=== PATIENT | male | born 1960 | race Caucasian/White ===

== ENCOUNTER 2020-01-06 22:39 | Outpatient (CLI) | payer BC | END 2020-01-06 23:59 | disposition critical access hospital (66) | LOC: EMS 22:39 | PROVIDERS: ATTEND Surgery | DX: R07.89 Other chest pain (principal); M79.602 Pain in left arm; R61 Generalized hyperhidrosis | CPT/HCPCS: A0425; A0427 ==

== ENCOUNTER 2020-01-06 23:19 | Observation (INO) | payer BC ==
--- NOTE | 2020-01-06 23:12 | ED Physician Documentation ---
History of Present Illness - Stated complaint Stated Complaint: CHEST PAIN - History obtained from History obtained from: Patient (The patient is a 59-year-old male with a hx of HTN, HLD who presents via ems w a cc of chest pain with no hx of mi/stroke/dvt/pe. tonight he felt some left chest pressure and an abnormal sensation to his left upper extremity. denies syncope. received nitro and asa from ems. describes sensation as moderate currently. reports felt some relief with nitro.) Review of Systems Constitutional: reports: Reviewed and negative Eyes: reports: Reviewed and negative Ears: reports: Reviewed and negative Nose: reports: Reviewed and negative Throat: reports: Reviewed and negative Cardiac: reports: Chest pain / pressure Respiratory: reports: Reviewed and negative GI: reports: Reviewed and negative : reports: Reviewed and negative Skin: reports: Reviewed and negative Musculoskeletal: reports: Reviewed and negative Neurologic: reports: Reviewed and negative Psychiatric: reports: Reviewed and negative Endocrine: reports: Reviewed and negative Immunocompromised: reports: Reviewed and negative PD PAST MEDICAL HISTORY - Present Medications Home Medications: Ambulatory Orders Medication Instructions Recorded Confirmed Atenolol [Tenormin] PO 01/07/20 Lovastatin [Altoprev] 01/07/20 - Allergies Allergies/Adverse Reactions: Allergies Allergy/AdvReac Type Severity Reaction Status Date / Time No Known Drug Allergies Allergy Verified 01/06/20 23:31 PD ED PE NORMAL - Vitals Vital signs reviewed: Yes - General General: Alert and oriented X 3, No acute distress, Well developed/nourished - HEENT HEENT: Atraumatic, PERRL, Moist mucous membranes, Dentition benign - Neck Neck: Supple, no meningeal sign, No adenopathy, No JVD - Cardiac Cardiac: RRR, No murmur, No gallop, Strong equal pulses - Respiratory Respiratory: No respiratory distress, Clear bilaterally - Abdomen Abdomen: Normal bowel sounds, Soft, Non tender, Non distended, No organomegaly - Back Back: No CVA TTP, No spinal TTP - Derm Derm: Normal color, Warm and dry, No rash - Extremities Extremities: No deformity, No tenderness to palpate, Normal ROM s pain, No edema, No calf tenderness / cord - Neuro Neuro: Alert and oriented X 3, 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9 Lymph # (Auto) 1.1 L [place] # (Auto) 0.7 Eos # (Auto) 0.2 Baso # (Auto) 0.1 Absolute Nucleated RBC 0.00 Nucleated RBC % 0.0 PT 12.2 INR 1.1 APTT 28.0 Sodium 143 Potassium 4.1 Chloride 108 Carbon Dioxide 26 Anion Gap 9.0 BUN 20 Creatinine 1.1 Estimated GFR (MDRD) 69 L Glucose 109 H Calcium 9.7 Total Bilirubin 0.2 AST 23 ALT 25 Alkaline Phosphatase 100 Total Creatine Kinase 101 Troponin I High Sens B-Natriuretic Peptide Total Protein 6.3 L Albumin 4.0 Globulin 2.3 Albumin/Globulin Ratio 1.7 Lipase 38 Ethyl Alcohol < 5.0 01/06/20 01/06/20 23:45 23:45 WBC RBC Hgb Hct MCV MCH MCHC RDW Plt Count MPV Neut # (Auto) Lymph # (Auto) [place] # (Auto) Eos # (Auto) Baso # (Auto) Absolute Nucleated RBC Nucleated RBC % PT INR APTT Sodium Potassium Chloride Carbon Dioxide Anion Gap BUN Creatinine Estimated GFR (MDRD) Glucose Calcium Total Bilirubin AST ALT Alkaline Phosphatase Total Creatine Kinase Troponin I High Sens 3.2 B-Natriuretic Peptide 28 Total Protein Albumin Globulin Albumin/Globulin Ratio Lipase Ethyl Alcohol PD MEDICAL DECISION MAKING - ED course Complexity details: reviewed results, re-evaluated patient (Had a lengthy discussion with this patient in regards to risk verification his heart score is 5 he is not had a stress test in the last 10 years.Patient is agreeable for admission for possible stress test possible echo and serial troponins as well as serial EKGs.), considered differential (PERC O, HEART SCORE 5.), d/w patient, d/w weight loss sales consultant - Consults Consults: Discussed case with (dr. calixto, hospitalist. will admit for serial troponins and echo. patient updated and agrees to plan.) Departure - Departure Disposition: ED Place in Observation Clinical Impression: Chest pain Qualifiers: Chest pain type: unspecified Qualified Code(s): R07.9 - Chest pain, unspecified Condition: Stable Discharge Date/Time: 01/07/20 01:09
[2020-01-06] MEDS ORDERED: SODIUM CHLORIDE 0.9% 1,000 ML IV ONE (23:25)
[2020-01-06] MEDS ORDERED: ONDANSETRON 4 MG/2 ML VIAL IVP STA (23:32)
[2020-01-06] MEDS ORDERED: MORPHINE 2 MG/ML CARPUJECT IVP STA (23:32)
[2020-01-06 23:56] LABS: BASOPHILS # (AUTO) 0.1 10^3/uL (0.0-0.1); BASOPHILS % (AUTO) 0.9 %; EOSINOPHILS # (AUTO) 0.2 10^3/uL (0.0-0.7); EOSINOPHILS % (AUTO) 2.3 %; HGB - HEMOGLOBIN 14.4 g/dL (14.0-18.0); LYMPHOCYTES # (AUTO) 1.1 10^3/uL (1.5-3.5); MEAN CORPUSCULAR HEMOGLOBIN 31.1 pg (27.0-31.0); MEAN CORPUSCULAR HGB CONC 33.9 g/dL (32.0-36.0); MEAN CORPUSCULAR VOLUME 91.8 fL (80.0-94.0); MEAN PLATELET VOLUME 9.2 fL (7.4-11.4); MONOCYTES # (AUTO) 0.7 10^3/uL (0.0-1.0); MONOCYTES % (AUTO) 9.7 %; NEUTROPHILS # (AUTO) 4.9 10^3/uL (1.5-6.6); NEUTROPHILS % (AUTO) 70.1 %; PLT - PLATELET COUNT 138 10^3/uL (130-450); RED BLOOD COUNT 4.63 10^6/uL (4.70-6.10); RED CELL DISTRIBUTION WIDTH 12.7 % (12.0-15.0)
[2020-01-07 00:02] LABS: INR 1.1 (0.8-1.2); PT - PROTHROMBIN TIME 12.2 secs (9.9-12.6)
--- NOTE | 2020-01-07 00:12 | XRAY Report ---
Reason: cp Procedure Date: 01/06/2020 Accession Number: [id number] / [id number] Procedure: XR - Chest 1 View X-Ray CPT Code: 69167 Final Report FULL RESULT: EXAM: CHEST RADIOGRAPHY EXAM DATE: 01/06/2020 11:38 PM. CLINICAL HISTORY: Cp. COMPARISON: None. TECHNIQUE: 1 view. FINDINGS: Lungs/Pleura: Minimal dependent atelectasis at the right base. No focal infiltrate, effusion, or pneumothorax. Mediastinum: Within exam limitations, the cardiomediastinal contour is normal. Other: None. IMPRESSION: Minimal right basilar atelectasis. RADIA
[2020-01-07 00:16] LABS: ALBUMIN/GLOBULIN RATIO 1.7 (1.0-2.2); ALKALINE PHOSPHATASE 100 IU/L (42-121); ALT ALANINE AMINOTRANSFERASE 25 IU/L (10-60); AST ASPARTATE AMINOTRANSFERASE 23 IU/L (10-42); BILIRUBIN,TOTAL 0.2 mg/dL (0.2-1.0); BUN - BLOOD UREA NITROGEN 20 mg/dL (6-20); CALCIUM 9.7 mg/dL (8.5-10.3); CARBON DIOXIDE - CO2 26 mmol/L (21-32); CHLORIDE 108 mmol/L (101-111); CK- CREATINE KINASE 101 IU/L (22-269); CREATININE 1.1 mg/dL (0.6-1.2); GLUCOSE 109 mg/dL (70-100); LIPASE 38 U/L (22-51); SODIUM 143 mmol/L (135-145); TOTAL PROTEIN 6.3 g/dL (6.7-8.2)
[2020-01-07] MEDS ORDERED: MORPHINE 2 MG/ML CARPUJECT IVP PRN (00:49)
[2020-01-07] MEDS ORDERED: ACETAMINOPHEN 325 MG TABLET PO PRN (00:49)
[2020-01-07] MEDS ORDERED: SODIUM CHLORIDE FLUSH 0.9% 10 ML SYRINGE IVP PRN (00:49)
[2020-01-07] MEDS ORDERED: PROCHLORPERAZINE 10 MG/2 ML VIAL IVP PRN (00:49)
[2020-01-07] MEDS ORDERED: ASPIRIN CHEW 81 MG TABLET PO ONE (00:49)
[2020-01-07] MEDS ORDERED: ZOLPIDEM 5 MG TABLET PO PRN (00:49)
[2020-01-07] MEDS ORDERED: HYDROcod/ACETAM 5/325 MG TABLET PO PRN (00:49)
[2020-01-07] MEDS ORDERED: ONDANSETRON 4 MG/2 ML VIAL IVP PRN (00:49)
[2020-01-07] MEDS ORDERED: NITROGLYCERIN SL 0.4 MG TABLET SL PRN (00:49)
--- NOTE | 2020-01-07 01:07 | HISTORY & PHYSICAL EXAMINATION ---
Chief Complaint - Chief Complaint Chief Complaint: Chest pain History of Present Illness - Admitted From Admitted From:: Home - History Obtained From Records Reviewed: Yes History obtained from: Patient Exam Limitations: None - History of Present Illness HPI Comment/Other: Patient is a very pleasant 59-year-old gentleman with a past medical history significant for hypertension, hyperlipidemia and obesity who presented to the emergency department with a chief complaint of chest pain. The patient states that he was in his normal state of health earlier today and even cut the grass this afternoon. He states that in the evening at around 930 he went to bed and was just falling asleep when he began to notice chest pressure. He states that he experienced 8 out of 10 pain in the center of his chest with radiation to his left arm. The patient denies any nausea or diaphoresis. He does state that he felt flushed. He denies any shortness of breath, cough, fevers or chills. He states that he is never experienced pain like this before. He decided he should call 911 and paramedics arrived on the scene. Patient states that he received nitroglycerin and aspirin. The patient also received morphine and states that his pain did improve but he does not know if it was from the medications or just with time. He states that he continues to have mild pain that still located in the center of his chest in the sternal area. It is now down to a 2 out of 10. The patient denies any abdominal pain, vomiting, diarrhea or constipation. He denies any urinary urgency or frequency. He denies any back pain, neck stiffne ss, recent unintentional weight loss, headaches, blurred vision, sore throat, runny nose, skin changes or any focal neurologic deficits. On presentation to the emergency department the patient was afebrile and vital signs were all within normal limits. The patient's lab work revealed a mild lymphopenia but otherwise he had normal WBC and hemoglobin. The patient's glucose was 109 and electrolytes were within normal limits. The patient's initial troponin was negative. His blood alcohol level was negative. The patient underwent a chest x-ray which showed minimal right basilar atelectasis but no signs of pneumonia. Given the patient's risk factors of hypertension, obesity, hyperlipidemia and family history of [place] he was placed in observation for serial troponins, echocardiogram and further telemetry monitoring History - Past Medical History Cardiovascular: reports: Hypertension, High cholesterol Psych: reports: Anxiety Other Past Medical History: Obesity - Past Surgical History General: reports: Hiatal hernia repair - Family & Social History Family History: Mother: CAD (Paternal grandfather had an [place], Father had a CABG last year), Hypertension, [place], Father: CAD, Hypertension, [place], Other family: CAD, [place] Living arrangement: At home Living Situation: Alone Social History Notes: Patient lives alone at home in [place], [place]. The patient works for [id number]. He lives fairly sedentary lifestyle as he works a [employer] job. He does try to garden and stay active at his home in [place]. He denies any tobacco use, alcohol use or illicit drug use. - Substance History Use: Uses substance without health or social issues: NONE Abuse: Recurrent use of substance despite neg consequences: NONE Dependence: Experiences withdrawal or developed tolerances: NONE - POLST Patient has POLST: No POLST Status: Full Code Meds/Allgy - Home Medications Home Medications: Ambulatory Orders Medication Instructions Recorded Confirmed Atenolol [Tenormin] PO 01/07/20 Lovastatin [Altoprev] 01/07/20 - Allergies Allergies/Adverse Reactions: Allergies Allergy/AdvReac Type Severity Reaction Status Date / Time No Known Drug Allergies Allergy Verified 01/06/20 23:31 Review of Systems - Other Findings Other Findings: A comprehensive review of systems was performed the pertinent positives and negatives are stated above in the HPI and the remainder of the review of systems is negative. Prior Level of Functionality: Lives independently at home Exam - Vital Signs Reviewed Vital Signs: Yes Vital Signs: Vital Signs x48h Temp Pulse Resp BP Pulse Ox 01/07/20 00:45 64 18 118/71 94 01/06/20 23:32 70 13 128/76 95 01/06/20 23:27 98.4 C H 74 14 111/81 H 95 - Physical Exam General Appearance: positive: No acute distress, Alert, Other (Obese). negative: Anxious Eyes Bilateral: positive: Normal inspection, PERRL, EOMI, No lid inflammation, Conjunctivae nml, No scleral icterus ENT: positive: ENT inspection nml, Pharynx nml, No signs of dehydration. negative: Purulent nasal drainage, Pharyngeal erythema, Oral lesions Neck: positive: Nml inspection, Thyroid nml, No JVD, Trachea midline. negative: Thyromegaly, Lymphadenopathy (R), Lymphadenopathy (L), Stiff neck Respiratory: positive: Chest non-tender, No respiratory distress, Breath sounds nml. negative: Wheezes, Rales, Rhonchi Cardiovascular: positive: Regular rate & rhythm, No murmur, No gallop Peripheral Pulses: positive: 2+ Abdomen: positive: Non-tender, No organomegaly, Nml bowel sounds, Other (Distended abdomen). negative: Guarding, Rebound, Hepatomegaly, Splenomegaly Back: positive: Nml inspection. negative: CVA tenderness (R), CVA tenderness (L) Skin: positive: Color nml, No rash, Warm, Dry Extremities: positive: Non-tender, Full ROM, Nml appearance, No pedal edema Neurologic/Psychiatric: positive: Oriented x3, CN's nml (2-12), Motor nml, Sensation nml, Mood/affect nml Conclusion/Plan - Problem List (1) Chest pain Conclusion/Plan: Patient presented with chest pressure in the mid sternum with radiation to the left arm which improved with nitroglycerin and aspirin. Patient with risk factors of hypertension, obesity and hyperlipidemia. Patient also has a family history of CAD. Initial troponin negative. EKG without acute ischemic changes. Chest x-ray showing atelectasis but no other acute changes. Serial troponins x3 Telemetry monitoring Nitroglycerin when necessary for chest pain Aspirin Metoprolol, lisinopril Lipitor Echo Consider stress test if available Qualifiers: Chest pain type: unspecified Qualified Code(s): R07.9 - Chest pain, unspecified (2) Hypertension Conclusion/Plan: Blood pressure stable on presentation Patient on atenolol at home We will monitor blood pressure while patient is hospitalized and start him on metoprolol and lisinopril Qualifiers: Hypertension type: essential hypertension Qualified Code(s): I10 - Essential (primary) hypertension (3) Hyperlipidemia Conclusion/Plan: Patient started on Lipitor due to presentation with chest pain He is on lovastatin at home We will get fasting lipid profile in the morning Qualifiers: Hyperlipidemia type: unspecified Qualified Code(s): E78.5 - Hyperlipidemia, unspecified (4) Obesity (BMI 30.0-34.9) Conclusion/Plan: Patient's BMI is 34.4 This is a risk factor for coronary artery disease Patient counseled on need for weight loss and advised to try to get exercise daily - Lab Results Lab results reviewed: Yes Fish Bones: 01/06/20 23:45 01/06/20 23:45 Other Lab Results: Laboratory Tests 01/06/20 01/06/20 01/06/20 23:45 23:45 23:45 WBC 7.0 RBC 4.63 L Hgb 14.4 Hct 42.5 MCV 91.8 MCH 31.1 H MCHC 33.9 RDW 12.7 Plt Count 138 MPV 9.2 Neut # (Auto) 4.9 Lymph # (Auto) 1.1 L [place] # (Auto) 0.7 Eos # (Auto) 0.2 Baso # (Auto) 0.1 Absolute Nucleated RBC 0.00 Nucleated RBC % 0.0 PT 12.2 INR 1.1 APTT 28.0 Sodium 143 Potassium 4.1 Chloride 108 Carbon Dioxide 26 Anion Gap 9.0 BUN 20 Creatinine 1.1 Estimated GFR (MDRD) 69 L Glucose 109 H Calcium 9.7 Total Bilirubin 0.2 AST 23 ALT 25 Alkaline Phosphatase 100 Total Creatine Kinase 101 Troponin I High Sens B-Natriuretic Peptide Total Protein 6.3 L Albumin 4.0 Globulin 2.3 Albumin/Globulin Ratio 1.7 Lipase 38 Ethyl Alcohol < 5.0 01/06/20 01/06/20 23:45 23:45 WBC RBC Hgb Hct MCV MCH MCHC RDW Plt Count MPV Neut # (Auto) Lymph # (Auto) [place] # (Auto) Eos # (Auto) Baso # (Auto) Absolute Nucleated RBC Nucleated RBC % PT INR APTT Sodium Potassium Chloride Carbon Dioxide Anion Gap BUN Creatinine Estimated GFR (MDRD) Glucose Calcium Total Bilirubin AST ALT Alkaline Phosphatase Total Creatine Kinase Troponin I High Sens 3.2 B-Natriuretic Peptide 28 Total Protein Albumin Globulin Albumin/Globulin Ratio Lipase Ethyl Alcohol - Diagnostic Imaging Results Diagnostic Imaging Results: positive: Prelim report reviewed, Final report reviewed Diagnostic Imaging Results Comments: Chest x-ray: Minimal right basilar atelectasis - EKG Results EKG Interpreted Independently: Yes EKG Findings: No ST elevations or acute ischemic changes noted Core Measures - Anticipated LOS I expect patient to be DC'd or transferred within 96 hours.: Yes - DVT/VTE - Prophylaxis VTE/DVT Prophylaxis med ordered at admit?: Yes
[2020-01-07] MEDS: SODIUM CHLORIDE FLUSH 0.9% 10 ML SYRINGE IVP SCH ×2 (02:25→09:02)
[2020-01-07 05:05] LABS: BASOPHILS # (AUTO) 0.1 10^3/uL (0.0-0.1); EOSINOPHILS # (AUTO) 0.2 10^3/uL (0.0-0.7); EOSINOPHILS % (AUTO) 3.3 %; HGB - HEMOGLOBIN 13.9 g/dL (14.0-18.0); LYMPHOCYTES # (AUTO) 1.5 10^3/uL (1.5-3.5); LYMPHOCYTES % (AUTO) 26.5 %; MEAN CORPUSCULAR HEMOGLOBIN 31.2 pg (27.0-31.0); MEAN CORPUSCULAR HGB CONC 33.4 g/dL (32.0-36.0); MEAN CORPUSCULAR VOLUME 93.3 fL (80.0-94.0); MEAN PLATELET VOLUME 9.4 fL (7.4-11.4); MONOCYTES # (AUTO) 0.4 10^3/uL (0.0-1.0); MONOCYTES % (AUTO) 7.5 %; NEUTROPHILS # (AUTO) 3.5 10^3/uL (1.5-6.6); PLT - PLATELET COUNT 113 10^3/uL (130-450); RED BLOOD COUNT 4.46 10^6/uL (4.70-6.10); WHITE BLOOD COUNT 5.8 x10^3/uL (4.8-10.8)
[2020-01-07 05:18] LABS: ALBUMIN 3.8 g/dL (3.2-5.5); ALBUMIN/GLOBULIN RATIO 1.7 (1.0-2.2); ALKALINE PHOSPHATASE 100 IU/L (42-121); ALT ALANINE AMINOTRANSFERASE 25 IU/L (10-60); AST ASPARTATE AMINOTRANSFERASE 22 IU/L (10-42); BILIRUBIN,TOTAL 0.7 mg/dL (0.2-1.0); BUN - BLOOD UREA NITROGEN 18 mg/dL (6-20); CARBON DIOXIDE - CO2 25 mmol/L (21-32); CHLORIDE 109 mmol/L (101-111); CHOL/HDL RATIO 3.7 (<5.0); CHOLESTEROL 158 mg/dL; GLUCOSE 101 mg/dL (70-100); HDL CHOLESTEROL 43 mg/dL; LDL CHOLESTEROL,CALCULATED 85 mg/dL; SODIUM 140 mmol/L (135-145); VLDL CHOLESTEROL 30 mg/dL
[2020-01-07 06:35] LABS: MUDS CUTOFF CONCENTRATIONS CUTOFF CONC BELOW:
[2020-01-07 06:37] LABS: BILIRUBIN,URINE NEGATIVE (NEGATIVE); GLUCOSE, URINE (UA) NEGATIVE (NEGATIVE); KETONES,URINE (UA) NEGATIVE (NEGATIVE); LEUKOCYTE ESTERASE, URINE NEGATIVE (NEGATIVE); NITRITE,URINE NEGATIVE (NEGATIVE); OCCULT BLOOD,URINE NEGATIVE (NEGATIVE); PROTEIN,URINE NEGATIVE (NEGATIVE); UROBILINOGEN,URINE 0.2 (NORMAL) E.U./dL (NORMAL)
[2020-01-07 06:38] LABS: CLARITY,URINE SL. CLOUDY (CLEAR)
[2020-01-07 06:45] LABS: BACTERIA,URINE None Seen /HPF (None Seen); RBC,URINE None Seen /HPF (0-5); SQUAMOUS EPITHELIAL CELL,UR NONE SEEN (<= Few)
[2020-01-07 06:46] LABS: AMORPHOUS SEDIMENT,UR Marked /LPF
[2020-01-07 06:48] LABS: AMPHETAMINE SCREEN,URINE NEGATIVE (NEGATIVE); BENZODIAZEPINES SCREEN, URINE POSITIVE (NEGATIVE); COCAINE SCREEN URINE NEGATIVE (NEGATIVE); METHADONE SCREEN, URINE NEGATIVE (NEGATIVE); METHAMPHETAMINES SCREEN, URINE NEGATIVE (NEGATIVE); OPIATE SCREEN, URINE NEGATIVE (NEGATIVE); OXYCODONE SCREEN, URINE NEGATIVE (NEGATIVE); PROPOXYPHENE SCREEN, URINE NEGATIVE (NEGATIVE); TRICYCLIC ANTIDEPRESSANT,URINE NEGATIVE (NEGATIVE)
[2020-01-07] MEDS ORDERED: METOPROLOL TARTRATE 25 MG TABLET PO SCH (09:00)
[2020-01-07] MEDS ORDERED: ASPIRIN EC 81 MG TABLET PO SCH (09:00)
[2020-01-07] MEDS ORDERED: ENOXAPARIN 40 MG/0.4 ML SYRINGE SUBQ SCH (09:00)
[2020-01-07] MEDS ORDERED: FAMOTIDINE 20 MG TABLET PO SCH (09:00)
[2020-01-07] MEDS ORDERED: lisinopriL 5 MG TABLET PO SCH (09:00)
--- NOTE | 2020-01-07 11:00 | PHARMACY PROGRESS NOTE ---
- Best Possible Medication History Admit Date and Time: 01/07/20 0049 Processed by: Pharmacy Medication History completed: Yes Secondary Source(s): Physician records, Pharmacy records, Insurance records As the person ultimately responsible for medication therapy, providers are able to order a medication from an existing home medication list in [facility] via the "Reconcile Routine" prior to Confirmation of that medication by customer support consultant. Such practice is discouraged except when the physician, in their clinical judgment, deems that a medical need exists for a medication without regard to previous use.
--- NOTE | 2020-01-07 11:14 | Discharge Plan ---
Discharge Plan Problem Reviewed?: Yes Disposition: Home, Self Care Condition: Stable Prescriptions: Aspirin [Adult Aspirin Regimen] 81 mg PO DAILY #10 tablet. Diet: Cardiac Activity Restrictions: Activity as Tolerated Shower Restrictions: No (fall precaution) Instruction Topics: Aspirin ASA chewable tablets, Heart Risk Health Concerns: chest pain Plan of Treatment: your chest is resolved now. your serial Troponin, EKG and ECHO are unremarkable. Lower dosage Aspirin is prescribed for you now. advise you followup wheelage clerk to have a stress test as out-pt. Care Goals: stabilization and improvement of your medical conditions Assessment: discussed with you the care plan, you understood and agreed. Additional Instructions or Follow Up instructions: You may followup your PCP in one week, followup wheelage clerk to have a stress test as out-pt. Should your symptoms return or worsen, you may present ER or call 911 for help. No Smoking: If you smoke, Please STOP! Call for help. Follow-up with: GARRETT COFFMAN MD [Primary Care Provider] -
--- NOTE | 2020-01-07 11:26 | DISCHARGE SUMMARY ---
Discharge Summary Admit Date: 01/07/20 Discharge Date: 01/07/20 Discharging Provider: Eldon Da Silva Primary Care Provider: Robin Schumacher Condition at Discharge: Stable Discharge Disposition: 01 Home, Self Care Discharge Facility Name: home - DIAGNOSES Admission Diagnoses: (1) Chest pain (2) Hypertension (3) Hyperlipidemia (4) Obesity (BMI 30.0-34.9) Discharge Diagnoses with Status of Each Condition: (1) Chest pain pt report his chest pain is resolved, no more chest pain. pt had serial Trop onin, EKG, ECHO all reveals unremarkable. Unfortunately we do not have stress test now. pt was advise to have stress test as out-pt. pt understood and agreed. Based on pt's risks factors, lower dosage of Aspirin is prescribed for pt. (2) Hypertension stable (3) Hyperlipidemia stable (4) Obesity (BMI 30.0-34.9) stable, pt was advise for loss of weigh. - HPI History of Present Illness: refer from Dr. Gates's HPI on 01/07/2020 Patient is a very pleasant 59-year-old gentleman with a past medical history significant for hypertension, hyperlipidemia and obesity who presented to the em ergency department with a chief complaint of chest pain. The patient states that he was in his normal state of health earlier today and even cut the grass this afternoon. He states that in the evening at around 930 he went to bed and was just falling asleep when he began to notice chest pressure. He states that he experienced 8 out of 10 pain in the center of his chest with radiation to his left arm. The patient denies any nausea or diaphoresis. He does state that he felt flushed. He denies any shortness of breath, cough, fevers or chills. He states that he is never experienced pain like this before. He decided he should call 911 and paramedics arrived on the scene. Patient states that he received nitroglycerin and aspirin. The patient also received morphine and states that his pain did improve but he does not know if it was from the medications or just with time. He states that he continues to have mild pain that still located in the center of his chest in the sternal area. It is now down to a 2 out of 10. The patient denies any abdominal pain, vomiting, diarrhea or constipation. He denies any urinary urgency or frequency. He denies any back pain, neck stiffness, recent unintentional weight loss, headaches, blurred vision, sore throat, runny nose, skin changes or any focal neurologic deficits. On presentation to the emergency department the patient was afebrile and vital signs were all within normal limits. The patient's lab work revealed a mild lymphopenia but otherwise he had normal WBC and hemoglobin. The patient's glucose was 109 and electrolytes were within normal limits. The patient's initial troponin was negative. His blood alcohol level was negative. The patient underwent a chest x-ray which showed minimal right basilar atelectasis but no signs of pneumonia. Given the patient's risk factors of hypertension, obesity, hyperlipidemia and family history of [place] he was placed in observation for serial troponins, echocardiogram and further telemetry monitoring - HOSPITAL COURSE Hospital Course: pt was admitted for chest pain. After treatment in hospital, pt report his chest pain was resolved, no more chest pain. pt had serial Troponin, EKG, ECHO all reveals unremarkable. pt was advise to have stress test as out-pt. The detail hospital course is as the below. (1) Chest pain pt report his chest pain is resolved, no more chest pain. pt had serial Troponin, EKG, ECHO all reveals unremarkable. Unfortunately we do not have stress test now. pt was advise to have stress test as out-pt. pt understood and agreed. Based on pt's risks factors, lower dosage of Aspirin is prescribed for pt. (2) Hypertension stable (3) Hyperlipidemia stable (4) Obesity (BMI 30.0-34.9) stable, pt was advise for loss of weigh. - ALLERGIES Allergies/Adverse Reactions: Allergies Allergy/AdvReac Type Severity Reaction Status Date / Time No Known Drug Allergies Allergy Verified 01/06/20 23:31 - MEDICATIONS Home Medications: Ambulatory Orders Medication Instructions Recorded Confirmed ALPRAZolam [Alprazolam] 0.25 mg PO TID PRN 01/07/20 01/07/20 Aspirin [Adult Aspirin Regimen] 81 mg PO DAILY #10 tablet. 01/07/20 Atenolol [Tenormin] 50 mg PO DAILY 01/07/20 01/07/20 Atorvastatin Calcium 40 mg PO QPM 01/07/20 01/07/20 Fluoxetine HCl [Prozac] 60 mg PO DAILY 01/07/20 01/07/20 buPROPion [Wellbutrin Sr] 150 mg PO BID 01/07/20 01/07/20 - PHYSICAL EXAM AT DISCHARGE General Appearance: positive: No acute distress, Alert. negative: Lethargic Eyes Bilateral: positive: Normal inspection, PERRL, No lid inflammation ENT: positive: ENT inspection nml, Pharynx nml, No signs of dehydration. negative: Purulent nasal drainage Neck: positive: Nml inspection, Thyroid nml, No JVD, Trachea midline. negative: Thyromegaly, Stiff neck, Tracheal deviation Respiratory: positive: Chest non-tender, No respiratory distress, Breath sounds nml. negative: Wheezes, Rales, Rhonchi Cardiovascular: positive: Regular rate & rhythm, No murmur, No gallop. negative: Irregularly irregular, Tachycardia, Bradycardia, JVD present, Systolic murmur, Diastolic murmur Peripheral Pulses: positive: 2+ Abdomen: positive: Non-tender, No organomegaly, Nml bowel sounds, No distention. negative: Tenderness, Guarding, Rebound Back: positive: Nml inspection. negative: CVA tenderness (R), CVA tenderness (L) Skin: positive: Color nml, No rash, Warm, Dry. negative: Cyanosis, Diaphoresis, Pallor Extremities: positive: Non-tender, Full ROM, Nml appearance. negative: Calf tenderness, Jyothi's sign/cords Neurologic/Psychiatric: positive: Oriented x3, Motor nml, Sensation nml, Mood/affect nml. negative: Weakness, Sensory loss, Facial droop, Slurred/abnml speech, Depressed mood/affect - LABS Result Diagrams: 01/07/20 04:50 01/07/20 04:50 - FOLLOW UP Follow Up: your chest is resolved now. your serial Troponin, EKG and ECHO are unremarkable. Lower dosage Aspirin is prescribed for you now. advise you followup farm assistant to have a stress test as out-pt. You may followup your PCP in one week, followup farm assistant to have a stress test as out-pt. Should your symptoms return or worsen, you may present ER or call 911 for help. - TIME SPENT Time Spent in Discharge (Minutes): 30
[2020-01-07 11:38] VITALS: BP 128/83
[2020-01-07] MEDS ORDERED: ATORVASTATIN 40 MG TABLET PO SCH (21:00)
== END 2020-01-07 13:05 | disposition home or self-care (01) ==
LOC: EDBD → ED 23:19 → MS2 01-07 00:49
PROVIDERS: ADMIT Internal Medicine; ATTEND Nurse Practitioner Gerontology
DX: R07.9 Chest pain, unspecified (principal); I10 Essential (primary) hypertension; E78.5 Hyperlipidemia, unspecified; E66.9 Obesity, unspecified; Z68.32 Body mass index [BMI] 32.0-32.9, adult; Z82.49 Family history of ischemic heart disease and other diseases of the circulatory system
CPT/HCPCS: 36415; 71045; 80053; 80061; 80320; 81001; 82550; 83690; 83880; 84484; 85025; 85610; 85730; 93005; 93306; 96361; 96372; 96374; 99284; 99285; A9270; G0378; J1650; 80306; 81003; 83721; 87086